=== PATIENT | male | born 1980 | race Caucasian/White ===

== ENCOUNTER 2020-07-25 12:46 | Emergency (ER) | payer OTHER ==
[~2020-07-25] VITALS: Wt 81.6 kg
[~2020-07-25 12:46] MED LIST: CHANTIX0.5 MG PO; KEFLEX500 MG PO; MOTRIN800 MG PO; PAXIL10 MG PO
== END 2020-07-25 16:21 | disposition home or self-care (01) ==
LOC: ED 12:46
DX: S61.451A Open bite of right hand, initial encounter (principal); Z79.899 Other long term (current) drug therapy; W54.0XXA Bitten by dog, initial encounter; Y93.89 Activity, other specified; Y92.89 Other specified places as the place of occurrence of the external cause; Y99.8 Other external cause status

== ENCOUNTER 2022-10-31 09:39 | Emergency (ER) | payer OTHER ==
[~2022-10-31] VITALS: Ht 172.7 cm; Wt 77.1 kg
[2022-10-31] MEDS ORDERED: AMOX-CLAV 875-1 EACH PO (11:40)
== END 2022-10-31 11:44 | disposition home or self-care (01) ==
LOC: ED 09:39
DX: S62.661B Nondisplaced fracture of distal phalanx of left index finger, initial encounter for open fracture (principal); W31.89XA Contact with other specified machinery, initial encounter; Y93.89 Activity, other specified; Y92.009 Unspecified place in unspecified non-institutional (private) residence as the place of occurrence of the external cause; Y99.8 Other external cause status

== ENCOUNTER → 2022-11-24 | Outpatient (CLI) | payer OTHER ==
[~2022-11-24] MED LIST changes: +AMOX-CLAV 875-1 EACH PO
== END | disposition home or self-care (01) ==
LOC: ORTHO 01:21
PROVIDERS: ATTEND Orthopaedic Surgery
DX: S62.661B Nondisplaced fracture of distal phalanx of left index finger, initial encounter for open fracture (principal); X58.XXXA Exposure to other specified factors, initial encounter; Y93.89 Activity, other specified; Y92.89 Other specified places as the place of occurrence of the external cause; Y99.8 Other external cause status